=== PATIENT | male | born 1980 | race Caucasian/White ===

== ENCOUNTER 2021-01-30 19:00 | Outpatient (CLI) | payer BC | END 2021-01-30 19:01 | disposition critical access hospital (66) | LOC: EMS 19:00 | DX: I46.9 Cardiac arrest, cause unspecified (principal) | CPT/HCPCS: A0425; A0433 ==

== ENCOUNTER 2021-01-30 19:10 | Emergency (ER) | payer BC ==
--- NOTE | 2021-01-30 19:21 | ED Physician Documentation ---
PD HPI CPR - Stated complaint Stated Complaint: MCA - CPR. TRAUMA CODE
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
== END 2021-01-30 22:09 | disposition expired ==
LOC: EDBD 19:10 → ED 19:10
DX: I46.9 Cardiac arrest, cause unspecified (principal); V27.4XXA Motorcycle driver injured in collision with fixed or stationary object in traffic accident, initial encounter; Y92.410 Unspecified street and highway as the place of occurrence of the external cause
CPT/HCPCS: 92950; 99281; 99285